=== PATIENT | female | born 1965 | race Caucasian/White ===

== ENCOUNTER 2017-12-03 17:02 | Outpatient (CLI) | payer OTHER ==
[2017-12-03 17:36] LABS: Hemoglobin 14.4 g/dL (12.0-16.0); Mean Corpuscular HGB CONC 33.9 g/dL (32.0-36.0); Mean Corpuscular Hemoglobin 29.4 pg (27.0-31.0); Mean Corpuscular Volume 86.5 fl (81.0-99.0); Mean Platelet Volume 8.7 fL (7.4-10.4); Platelet Count 266 thou/uL (130-400); RBC Distribution Width 12.2 % (11.5-14.5); White Blood Cell (WBC) Count 7.7 thou/uL (4.8-10.8)
[2017-12-03 17:56] LABS: Anion Gap 12 mmol/L (10-20); BUN (Urea Nitrogen) 15 mg/dL (9.8-20.1); Calc. Creatinine Clearance 0 mL/min (70-130); Calcium 9.6 mg/dL (7.8-10.44); Carbon Dioxide 25 mmol/L (22-29); Chloride 107 mmol/L (98-107); Estimated GFR-MDRD 80; Glucose 98 mg/dL (70-105); Potassium 3.9 mmol/L (3.5-5.1); Sodium 140 mmol/L (136-145)
== END 2017-12-03 17:03 | disposition home or self-care (01) ==
LOC: LABBT 17:02
PROVIDERS: ATTEND Orthopaedic Surgery
DX: Z01.812 Encounter for preprocedural laboratory examination (principal); G56.02 Carpal tunnel syndrome, left upper limb
CPT/HCPCS: 80048; 85027

== ENCOUNTER 2017-12-05 05:51 | Day surgery (SDC) | payer OTHER ==
[2017-12-03 17:04] VITALS: BMI 30.2
[2017-12-05] MEDS ORDERED: Lidocaine 1% (PF) 30 ML VIAL ONE (06:53)
[2017-12-05] MEDS ORDERED: CEFAZOLIN/Water 2 GM/20 ML SYRINGE ONE (06:57)
[2017-12-05] MEDS ORDERED: Fentanyl 100 MCG/2 ML VIAL ONE (07:21)
[2017-12-05] MEDS ORDERED: Midazolam HCl 2 mg/2 ml Vial ONE (07:21)
[2017-12-05] MEDS ORDERED: Bupivacaine PF 0.5% 30 ML VIAL ONE (07:50)
--- NOTE | 2017-12-05 10:18 | OP ---
DATE OF PROCEDURE: 12/05/2017 PREOPERATIVE DIAGNOSIS: Left cubital tunnel syndrome. POSTOPERATIVE DIAGNOSIS: Left cubital tunnel syndrome. PROCEDURE PERFORMED: 1. Left open ulnar nerve release with transposition anteriorly. 2. Placement of long arm splint, left upper extremity. SURGEON: Abdiel Brown M.D. SURVEY RESEARCH ASSOCIATE: None. BLOOD LOSS: Minimal. COMPLICATIONS: None. ANESTHESIA: She had a general anesthetic. IMPLANTS: There were no implants. DISPOSITION: She went to the recovery room in stable condition. INDICATION: This is a 52-year-old female, who has been having numbness and tingling in her left hand small and ring fingers, and at this time, an EMG/NCV was performed, which showed her to have severe cubital tunnel syndrome, and at this time, she opted to have a nerve release. DESCRIPTION OF PROCEDURE: After all appropriate consent forms were explained and signed, she was [place] en back to operating room, and at this time was given general anesthetic. Once the level of anesthes ia was appropriate, a tourniquet was placed high up on the arm on the left side and the left arm was then prepped and draped in standard surgical fashion. Using loupe magnification, the arm was exsangu inated, tourniquet taken to 250 mmHg. A blade was used to incise down through skin only. Bipolar ca utery was then used to coagulate any brisk venous bleeding. Scissor dissection was then used to find the ulnar nerve and freed up carefully from the mid brachium all the way down to the first motor bra nch distally. The area of the largest concern was a fascial band just before the first motor branch distally. Once this was released, the flexor forearm mass had the fat removed from it, so that the n erve will be able to sit up there nicely, and at this time, a moist Ray-Santos sponge was placed into th e wound and the tourniquet was let down. At this time, hemostasis was achieved using the bipolar. W e then thoroughly irrigated our wound. We then used some interrupted Vicryl sutures to close our cub ital tunnel, so that the ulnar nerve could not fall back into the cubital tunnel. Once this was done , the arm was put through full range of motion and was found to glide nicely through flexion and exte nsion. At this time, 2-0 Vicryl and Prolene sutures were then used to close the skin. Prior to clos ing the skin itself, Marcaine without epinephrine was injected into the skin flaps for postop pain re lief. At this time, once the skin was closed, a bulky sterile dressing was applied as well as a long arm splint. The patient was then awakened and she was taken to the recovery room in stable conditio n. All counts were correct at the end of the case and she did receive preoperative IV antibiotics.
[2017-12-05] MEDS ORDERED: Lidocaine 1% PF 5 ML VIAL ONE (15:04)
[2017-12-05] MEDS ORDERED: ePHEDrine/0.9% NaCl/PF SYRINGE 50 mg/10 ml ONE (15:04)
[2017-12-05] MEDS ORDERED: PROPOFOL 200 MG/20 ML VIAL ONE (15:04)
== END 2017-12-05 10:42 | disposition home or self-care (01) ==
LOC: SDC 05:51
PROVIDERS: ATTEND Orthopaedic Surgery
PROC: 01N40ZZ Release Ulnar Nerve, Open Approach (ICD-10-PCS; principal; 2017-12-05)
DX: G56.22 Lesion of ulnar nerve, left upper limb (principal); Z79.82 Long term (current) use of aspirin; Z79.899 Other long term (current) drug therapy; Z88.5 Allergy status to narcotic agent
CPT/HCPCS: J2001; J2250; J2704; J3010; S0020

== ENCOUNTER 2019-07-18 13:51 | Outpatient (CLI) | payer OTHER ==
--- NOTE | 2019-07-18 14:23 | MMO ---
Bilateral MAMMO Bilat Screen [facility]. CLINICAL HISTORY: Patient is 53 years old and is seen for screening. The patient has no family history of breast cancer. The patient has no personal history of cancer. VIEWS: The views performed were: bilateral craniocaudal with tomosynthesis and bilateral mediolateral oblique with tomosynthesis. This study has been interpreted with the assistance of computer-aided detection. MAMMOGRAM FINDINGS: The breasts are heterogeneously dense, which could obscure a lesion on mammography. There are stable benign appearing calcifications seen in both breasts. There are no suspicious masses, suspicious calcifications, or new areas of architectural distortion. IMPRESSION: THERE IS NO MAMMOGRAPHIC EVIDENCE OF MALIGNANCY. A ROUTINE FOLLOW-UP MAMMOGRAM IN 1 YEAR IS RECOMMENDED. THE RESULTS OF THIS EXAM WERE SENT TO THE PATIENT. ACR BI-RADS Category 2 - Benign finding MAMMOGRAPHY NOTE: 1. A negative mammogram report should not delay a biopsy if a dominant of clinically suspicious mass is present. 2. Approximately 10% to 15% of breast cancers are not detected by mammography. 3. Adenosis and dense breasts may obscure an underlying neoplasm. Reported by: MAREN WHITT MD Electonically Signed: [id number]
== END 2019-07-18 13:52 | disposition home or self-care (01) ==
LOC: BICMAMMO 13:51
PROVIDERS: ATTEND Family Medicine
DX: Z12.31 Encounter for screening mammogram for malignant neoplasm of breast (principal)
CPT/HCPCS: 77063; 77067